=== PATIENT | female | born 2000 | race Caucasian/White ===

== ENCOUNTER 2022-07-03 13:01 | Emergency (ER) | payer OTHER ==
[~2022-07-03] VITALS: Ht 160 cm; Wt 70.3 kg
[~2022-07-03 13:01] MED LIST: ACETAMINOPHEN325 M1 PO; IBUPROFEN400 MG PO; ORTHO TRI-CYCL1 EAC1 PO
== END 2022-07-03 18:52 | disposition home or self-care (01) ==
LOC: ED 13:01
DX: S93.401A Sprain of unspecified ligament of right ankle, initial encounter (principal); S83.91XA Sprain of unspecified site of right knee, initial encounter; S16.1XXA Strain of muscle, fascia and tendon at neck level, initial encounter; M25.511 Pain in right shoulder; W17.89XA Other fall from one level to another, initial encounter
CPT/HCPCS: 72040; 73030; 73560; 73590; 73610

== ENCOUNTER 2024-09-06 22:16 | Emergency (ER) | payer OTHER, BC ==
[~2024-09-06] VITALS: Ht 160 cm; Wt 80.0 kg
[2024-09-07] MEDS ORDERED: CYCLOBENZAPRINE10 MG PO (01:21)
[2024-09-07] MEDS ORDERED: CELEBREX200 MG PO (01:21)
[2024-09-07] MEDS ORDERED: CYCLOBENZAPRINE HCL 10 MG HOME.PACK PO ONE (01:30)
[2024-09-07 01:41] VITALS: BP 138/87
== END 2024-09-07 01:41 | disposition home or self-care (01) ==
LOC: ED 22:16
DX: S16.1XXA Strain of muscle, fascia and tendon at neck level, initial encounter (principal); S33.8XXA Sprain of other parts of lumbar spine and pelvis, initial encounter; V89.2XXA Person injured in unspecified motor-vehicle accident, traffic, initial encounter; Z79.899 Other long term (current) drug therapy
CPT/HCPCS: 72040; 72128; 72131; 84703; 99284-25